=== PATIENT | male | born 1980 | race Caucasian/White ===

== ENCOUNTER 2018-10-02 16:51 | Emergency (ER) | payer OTHER ==
[2018-10-02 16:59] VITALS: BP 108/72
--- NOTE | 2018-10-02 17:11 | EDPHY ---
H & P Smoking Status: Never smoked Time Seen by Provider: 10/02/18 17:01 HPI/ROS: CHIEF COMPLAINT: Right elbow pain swelling redness HISTORY OF PRESENT ILLNESS: 38-year-old immunocompetent male, generally healthy , no history of IV drug abuse, complaining of right dorsal elbow pain swelling erythema for the past 2 days. He notes an abrasion to the dorsal aspect of his right elbow after he was rock climbing. He does have full extension of the elbow, flexion to 90 degrees beyond which elicits pain. No direct trauma or fall onto his elbow PHYSICAL EXAM (Prior to examination, patient consented to physical exam, hands were washed and my usual and customary physical exam procedures followed) 1) GENERAL: Well-developed, well-nourished, alert and oriented. Appears to be in no acute distress. 2) HEAD: Normocephalic 3) HEENT: sclera anicteric 4) LUNGS: Breathing comfortably. 5) SKIN: Abrasion to the dorsal elbow. Soft tissue swelling to the dorsal aspect overlying the olecranon bursa consistent with olecranon bursitis with mild overlying erythema. There is no lymphangitic streaking. No pain with axial loading of the joint. No effusion to the joint. Supination pronation or pain-free. Full extension. Flexion to 90 degrees however beyond this elicits significant pain. No axillary adenopathy proximally. Brisk pulses distally. Soft compartments (Radha,D Rayna) Constitutional: Initial Vital Signs Temperature (C) 37.2 C 10/02/18 16:57 Heart Rate 58 L 10/02/18 16:57 Respiratory Rate 16 10/02/18 16:57 Blood Pressure 108/72 10/02/18 16:57 O2 Sat (%) 98 10/02/18 16:57 O2 Delivery Mode Room Air Allergies/Adverse Reactions: gluten Allergy (Verified 10/02/18 17:00) Milk Containing Products [dairy] Allergy (Verified 10/02/18 17:00) Home Medications: Medication Instructions Recorded Cephalexin [Keflex] 500 mg PO TID 7 Days cap 10/02/18 MDM/Departure - [facility] ED Course/Re-evaluation: I think the patient's symptoms less than likely represent septic arthritis. We discussed more than likely olecranon bursitis with possible early septic bursitis. At this time I think the patient can be treated on outpatient basis, discharged home safely. I am initiating antibiotic therapy. No known history of cutaneous MRSA. Tetanus is already up-to-date. He is immunocompetent. I believe him to have decision-making capacity. He has has primary care established. I Stressed the importance of follow-up with orthopedics. I do not think that drainage indicated at this time. Patient feels comfortable being discharged. All questions and concerns addressed by myself. Patient given my usual and customary discharge precautions and instructions regarding their clinical impression. Care of patient under supervision of secondary supervising physician Dr Byers with whom I discussed case. (Cesar Garcia) The patient was evaluated and managed by the Physician [employer]. I discussed the patient's presentation and course with the midlevel provider with them and agree with the evaluation. My co-signature indicates that I have reviewed this chart and I agree with the findings and plan of care as documented. I am the secondary supervising physician. (Estrella Byers) - Depart Disposition: Home, Routine, Self-Care Clinical Impression: Olecranon bursitis, right elbow Condition: Good Instructions: Elbow Bursitis (ED) Additional Instructions: Return to the ER if you develop redness, swelling, discharge, warmth to the wound, red streaks going up your arm, or any other symptoms that concern you. Prescriptions: Cephalexin [Keflex] 500 mg PO TID 7 Days cap Referrals: Mahendra Dillon MD [Medical Doctor] - 2-3 days, call for appt.
== END 2018-10-02 17:26 | disposition home or self-care (01) ==
DX: M70.21 Olecranon bursitis, right elbow (principal)